=== PATIENT | male | born 1985 | race Caucasian/White ===

== ENCOUNTER 2017-10-08 21:31 | Emergency (ER) | payer MEDICAID ==
[~2017-10-08] VITALS: Ht 175.3 cm; Wt 83.7 kg
[2017-10-08 21:34] VITALS: BP 149/102
== END 2017-10-08 23:17 | disposition home or self-care (01) ==
LOC: ED 23:11
DX: S61.452A Open bite of left hand, initial encounter (principal); F10.220 Alcohol dependence with intoxication, uncomplicated; W55.03XA Scratched by cat, initial encounter; Y93.89 Activity, other specified; Y92.009 Unspecified place in unspecified non-institutional (private) residence as the place of occurrence of the external cause; Y99.8 Other external cause status
CPT/HCPCS: 99283

== ENCOUNTER 2018-01-10 20:22 | Emergency (ER) | payer MEDICAID ==
[~2018-01-10] VITALS: Ht 175.3 cm; Wt 87.0 kg
[2018-01-10 20:23] VITALS: BP 161/111
[2018-01-10] MEDS ORDERED: IBUPROFEN 200 MG TABLET PO ONE (21:30)
[2018-01-10] MEDS ORDERED: IBUPROFEN 200 MG TABLET ONE (21:39)
== END 2018-01-10 21:45 | disposition home or self-care (01) ==
LOC: ED 21:10
DX: G44.52 New daily persistent headache (NDPH) (principal); J32.1 Chronic frontal sinusitis; R45.851 Suicidal ideations
CPT/HCPCS: 99283

== ENCOUNTER 2019-02-24 10:03 | Emergency (ER) | payer MEDICAID ==
[~2019-02-24] VITALS: Ht 175.3 cm; Wt 86.0 kg
[2019-02-24 10:24] VITALS: BP 130/84
--- NOTE | 2019-02-24 10:41 | NUR ---
PATIENT BIB [facility] FOR [facility] WITH NO PLAN AND ETOH/HEROIN ABUSE. PATIENT REPORTS DRINKING 1/5 VODKA TODAY [employer]IN[employer] AND HEROIN YESTERDAY. MIKHAIL 0.316 UPON ARRIVAL TO [facility]. HX DIVERTICULITIS/SKIN GRAFT TO RT LOWER EXT. UA COLLECTED AND SENT TO LAB. TRAY ORDERED PER PATIENT REQUEST. ALL PERSONAL BELONGINGS PLACE IN LABELED BAG AND PUT IN LOCKED STORAGE. DOORS DOWN, SITTER AT DOORWAY WITH PATIENT IN SIGHT. PATIENT CALM/COOPERATIVE, LAYING IN GURNEY, NAD NOTED. ALL SAFETY MEASURES IN PLACE.
[2019-02-24 11:22] LABS: BASOPHILS # (AUTO) 0.04 x10^3/uL (0-0.1); BASOPHILS % (AUTO) 1 % (0-1); EOSINOPHILS # (AUTO) 0.13 x10^3/uL (0-0.4); EOSINOPHILS % (AUTO) 2 % (1-7); LYMPHOCYTES # (AUTO) 4.01 x10^3/uL (1-3.4); LYMPHOCYTES % (AUTO) 46 % (22-44); MD NO; MEAN CORPUSCULAR HEMOGLOBIN 31.9 pg (27.5-34.5); MEAN CORPUSCULAR HGB CONC 33.4 g/dL (33.2-36.2); MEAN CORPUSCULAR VOLUME 95.5 fL (81-97); MEAN PLATELET VOLUME 8.4 fL (7.4-10.4); MONOCYTES # (AUTO) 0.53 x10^3/uL (0.2-0.8); MONOCYTES % (AUTO) 6 % (2-9); NEUTROPHILS # (AUTO) 3.95 x10^3/uL (1.8-6.8); NEUTROPHILS % (AUTO) 46 % (42-75); PLATELET COUNT 296 x10^3/uL (130-400); RED BLOOD COUNT 5.17 x10^6/uL (4.38-5.82); RED CELL DISTRIBUTION WIDTH 14.4 % (9.4-14.8)
[2019-02-24 11:36] LABS: ALBUMIN 3.9 g/dL (3.4-5.0); ANION GAP 10 mmol/L (5-15); CHLORIDE 110 mmol/L (98-107); CREATININE 0.97 mg/dL (0.7-1.3); SALICYLATE LEVEL 3.4 mg/dL (2.8-20.0)
[2019-02-24 11:41] LABS: ACETAMINOPHEN < 2 mcg/mL (10-30)
[2019-02-24 11:49] LABS: AMPHETAMINE SCREEN, URINE Negative (Negative); BARBITURATE SCREEN, URINE Negative (Negative); BENZODIAZEPINE SCREEN, URINE Positive (Negative); CANNABINOID SCREEN, URINE Positive (Negative); COCAINE SCREEN, URINE Negative (Negative); METHADONE SCREEN, URINE Negative (Negative); OPIATE SCREEN, URINE Negative (Negative)
--- NOTE | 2019-02-24 12:38 | NUR ---
DIET TRAY PROVIDED, ALL SAFETY MEASURES IN PLACE, SITTER AT DOORWAY. PATIENT REMAINS CALM/COOPERATIVE. PATIENT SITTING IN GURNEY EATING LUNCH, NO ADDITIONAL NEEDS AT THIS TIME.
--- NOTE | 2019-02-24 13:52 | NUR ---
PATIENT SLEEPING IN GURNEY, VISIBLE CHEST RISE AND FALL. SITTER AT DOORWAY WITH PATIENT IN SIGHT, AWAITING PATIENT TO BE SOBER PRIOR TO TELEPSYCH. NO ADDITIONAL NEEDS AT THIS TIME.
--- NOTE | 2019-02-24 14:58 | NUR ---
PATIENT STANDING AT DOORWAY ASKING FOR WATER, CALM/COOPERATIVE. PATIENT PROVIDED WATER PER REQUEST. SITTER AT DOORWAY WITH PATIENT IN SIGHT.
--- NOTE | 2019-02-24 15:11 | NUR ---
BREATHALYZER-0.147. MD AWARE. PATIENT SITTING IN KAREN, MARKUS NOTED.
--- NOTE | 2019-02-24 17:22 | NUR ---
PATIENT SLEEPING IN GURNEY, VISIBLE CHEST RISE AND FALL. NAD NOTED.
--- NOTE | 2019-02-24 18:32 | NUR ---
PATIENT DEMANDING TO LEAVE, PATIENT REASSESSED MY ERP, DC ORDERS RECEIVED, PATIENT NOTIFIED TO WAIT IN ROOM WHILE JERRY ASHFORD DC PAPER. Addendum: 02/24/19 at 2020 by DESON PATIENT NOT ON LEGAL.
--- NOTE | 2019-02-24 18:39 | NUR ---
Patient/Caregiver given discharge instructions and they have confirmed that they understand the instructions. Patient ambulatory with steady gait to DC desk.
== END 2019-02-24 18:49 | disposition home or self-care (01) ==
LOC: ED 11:21
DX: F32.9 Major depressive disorder, single episode, unspecified (principal); F10.129 Alcohol abuse with intoxication, unspecified
CPT/HCPCS: 36415; 80048; 80307; 82040; 85025; 99284

== ENCOUNTER 2019-04-20 16:00 | Emergency (ER) | payer MEDICAID ==
[~2019-04-20] VITALS: Ht 175.3 cm; Wt 83.7 kg
[2019-04-20 16:42] VITALS: BP 128/90
--- NOTE | 2019-04-20 16:55 | NUR ---
URINE SPECIMEN CUP GIVEN TO PT.
[2019-04-20 17:12] LABS: MICROSCOPIC NOT IND
[2019-04-20] MEDS ORDERED: FLUO20CA8 PO (18:35)
[2019-04-20] MEDS ORDERED: TRAZ-96 PO (18:35)
--- NOTE | 2019-04-20 18:40 | NUR ---
VOMITING BLOOD X "A COUPLE OF WEEKS", BLOOD IN URINE, BLOOD IN BM, ABD PAIN. HX: ALCOHOL ABUSE. WAS SCHEDULED TO CHECK INTO REHAB TODAY Report he drinks a gallon of vodka/day. Last drink this am Reports he has gone without drinking w/out seizure
--- NOTE | 2019-04-20 19:05 | NUR ---
report to jonatan palma
[2019-04-20 19:08] LABS: MEAN CORPUSCULAR HEMOGLOBIN 31.6 pg (27.5-34.5); MEAN CORPUSCULAR HGB CONC 33.1 g/dL (33.2-36.2); MEAN CORPUSCULAR VOLUME 95.6 fL (81-97); MEAN PLATELET VOLUME 7.9 fL (7.4-10.4); PLATELET COUNT 274 x10^3/uL (130-400); RED BLOOD COUNT 5.48 x10^6/uL (4.38-5.82); RED CELL DISTRIBUTION WIDTH 15.8 % (9.4-14.8)
--- NOTE | 2019-04-20 19:12 | NUR ---
report to jonatan palma
[2019-04-20 19:16] LABS: ALBUMIN 4.5 g/dL (3.4-5.0); ANION GAP 12 mmol/L (5-15); CALCIUM 8.6 mg/dL (8.5-10.1); CHLORIDE 111 mmol/L (98-107)
[2019-04-20 19:18] LABS: INTERNATIONAL NORMALIZED RATIO 1.04 (0.93-1.1); PROTHROMBIN TIME 10.9 Seconds (9.6-11.5)
[2019-04-20 19:19] LABS: ALANINE AMINOTRANSFERASE 34 U/L (12-78); ALKALINE PHOSPHATASE 78 U/L (45-117); BILIRUBIN,TOTAL 0.6 mg/dL (0.2-1.0); CREATININE 1.04 mg/dL (0.7-1.3); TOTAL PROTEIN 8.1 g/dL (6.4-8.2)
--- NOTE | 2019-04-20 19:23 | NUR ---
REPORT OF PT FROM JERRY MCCOY AND ASSUMING CARE OF PT AT THIS TIME. PT IN [facility] WITH CALL LIGHT WITHIN REACH.
[2019-04-20] MEDS ORDERED: FAMOTIDINE 20 MG TABLET ONE (19:24)
[2019-04-20] MEDS ORDERED: ONDANSETRON ODT 4 MG ONE (19:24)
[2019-04-20] MEDS ORDERED: MAALOX/HYOSCYAMINE/LIDOCAINE 45 ML BTL ONE (19:24)
[2019-04-20] MEDS ORDERED: FAMOTIDINE 20 MG TABLET PO ONE (19:30)
[2019-04-20] MEDS ORDERED: ONDANSETRON ODT 8 MG PO ONE (19:30)
[2019-04-20] MEDS ORDERED: MAALOX/HYOSCYAMINE/LIDOCAINE 45 ML BTL PO ONE (19:30)
--- NOTE | 2019-04-20 19:34 | NUR ---
PT MEDICATED PER MAR AT THIS TIME.
[2019-04-20 19:40] LABS: BASOPHILS # (AUTO) 0.03 x10^3/uL (0-0.1); BASOPHILS % (AUTO) 1 % (0-1); EOSINOPHILS # (AUTO) 0.08 x10^3/uL (0-0.4); EOSINOPHILS % (AUTO) 1 % (1-7); LYMPHOCYTES # (AUTO) 3.78 x10^3/uL (1-3.4); LYMPHOCYTES % (AUTO) 56 % (22-44); MD SCAN; MONOCYTES % (AUTO) 6 % (2-9); NEUTROPHILS % (AUTO) 36 % (42-75)
--- NOTE | 2019-04-20 20:06 | NUR ---
CARE ASSUMED FOR DC. PT DC'D HOME WITH RX X 3 AND UNDERSTANDING OF INSTRUCTIONS. REFERRAL PROVIDED FOR FOLLOW UP. PT AND FAMILY MEMBER ESCORTED TO DC DESK.
== END 2019-04-20 20:09 | disposition home or self-care (01) ==
LOC: ED 19:28
DX: K29.20 Alcoholic gastritis without bleeding (principal); F10.10 Alcohol abuse, uncomplicated; Z88.5 Allergy status to narcotic agent
CPT/HCPCS: 36415; 80053; 81003; 85025; 85610; 99284; Q0162

== ENCOUNTER 2019-08-20 15:40 | Inpatient (IN) | payer MEDICAID ==
[~2019-08-20] VITALS: Ht 175.3 cm; Wt 62.2 kg
[~2019-08-20 15:40] MED LIST: FLUO20CA8 PO; TRAZ-96 PO
[2019-08-20] MEDS ORDERED: SERT100T PO (16:15)
[2019-08-20] MEDS ORDERED: SODIUM CHLORIDE 0.9% 1,000 ML IV ONE ×2 (16:15→19:11)
[2019-08-20] MEDS ORDERED: NALT50TA PO (16:15)
[2019-08-20] MEDS ORDERED: HYDR50TA13 PO (16:15)
--- NOTE | 2019-08-20 16:23 | NUR ---
Patient brought in by EMS for left lower quadrant abdominal pain and dark red bloody stool. Patient reports he drank two fifths of hard alcohol today and used heroin and meth. Patient additionally requests assistance with detox. No interventions by EMS. Patient arrives alert and appropriate.
[2019-08-20] MEDS ORDERED: ONDANSETRON 2MG/ML, 2ML ONE (16:25)
[2019-08-20] MEDS ORDERED: PANTOPRAZOLE 40 MG IV ONE (16:25)
[2019-08-20] MEDS ORDERED: PANTOPRAZOLE 40 MG IV IVPush ONE (16:30)
[2019-08-20] MEDS ORDERED: SODIUM CHLORIDE 0.9% 1,000ML IVBOLUS ONE (16:30)
[2019-08-20] MEDS ORDERED: SODIUM CHLORIDE FLUSH 10ML SYR IVF ONE (16:30)
[2019-08-20] MEDS ORDERED: ONDANSETRON 2MG/ML, 2ML IVPush ONE (16:30)
--- NOTE | 2019-08-20 16:37 | NUR ---
Plan of care discussed with patient, questions answered.
[2019-08-20 16:43] LABS: MEAN CORPUSCULAR HEMOGLOBIN 32.5 pg (27.5-34.5); MEAN CORPUSCULAR HGB CONC 33.5 g/dL (33.2-36.2); MEAN CORPUSCULAR VOLUME 96.9 fL (81-97); MEAN PLATELET VOLUME 8.6 fL (7.4-10.4); PLATELET COUNT 222 x10^3/uL (130-400); RED BLOOD COUNT 5.04 x10^6/uL (4.38-5.82); RED CELL DISTRIBUTION WIDTH 16.9 % (9.4-14.8)
[2019-08-20 16:49] LABS: INTERNATIONAL NORMALIZED RATIO 0.95 (0.93-1.1)
[2019-08-20 17:13] LABS: MD YES
[2019-08-20 17:19] LABS: ALANINE AMINOTRANSFERASE 140 U/L (12-78); ANION GAP 11 mmol/L (5-15); CALCIUM 8.5 mg/dL (8.5-10.1); CHLORIDE 113 mmol/L (98-107); CREATININE 0.84 mg/dL (0.7-1.3)
[2019-08-20 17:22] LABS: ALKALINE PHOSPHATASE 57 U/L (45-117); BILIRUBIN,TOTAL 0.3 mg/dL (0.2-1.0); TOTAL PROTEIN 7.9 g/dL (6.4-8.2)
[2019-08-20 17:37] LABS: BAND#(MANUAL) 0.07 x10^3/uL; BANDS%(MANUAL) 1 % (0-7); EOS#(MANUAL) 0.36 x10^3/uL (0.0-0.4); EOS% (MANUAL) 5 % (1-7); LYMPH#(MANUAL) 4.62 x10^3/uL (1-3.4); LYMPHS% (MANUAL) 65 % (22-44); MONOS#(MANUAL) 0.21 x10^3/uL (0.3-2.7); MONOS% (MANUAL) 3 % (2-9); SEGS% (MANUAL) 26 % (42-75)
[2019-08-20 17:38] LABS: <PLATELET ESTIMATE> ADEQUATE; <PLT MORPHOLOGY> NORMAL PLT MORPH; <RBC MORPHOLOGY> NORMAL
[2019-08-20 17:39] LABS: SEG#(MANUAL) 1.85 x10^3/uL (1.8-6.8)
--- NOTE | 2019-08-20 17:41 | NUR ---
Patient resting in gurney with eyes closed. Waiting for lab results.
--- NOTE | 2019-08-20 19:04 | NUR ---
Dr. Wagner notified of patient's suicide risk score. Bedside report to JERRY Germain
[2019-08-20] MEDS ORDERED: SODIUM CHLORIDE FLUSH 10ML SYR IVF PRN (19:30)
[2019-08-20 20:13] VITALS: BP 120/78
[2019-08-20] MEDS ORDERED: LORazepam 2 MG/ML, 1ML IV PRN ×3 (21:00)
[2019-08-20] MEDS ORDERED: DIAZEPAM 5 MG/ML, 2ML IV PRN (21:00)
[2019-08-20] MEDS ORDERED: ONDANSETRON 2MG/ML, 2ML IV PRN (21:00)
[2019-08-20] MEDS ORDERED: ALUMINUM/MAG/SIMETHICONE 30 ML UDC PO PRN (21:00)
[2019-08-20 21:14] LABS: ANION GAP 6 mmol/L (5-15); CALCIUM 7.7 mg/dL (8.5-10.1); CHLORIDE 114 mmol/L (98-107); CREATININE 0.73 mg/dL (0.7-1.3)
[2019-08-20 21:50] LABS: MICROSCOPIC NOT IND
[2019-08-20 21:54] LABS: CULTURE INDICATED? NO
[2019-08-20] MEDS: MAGNESIUM SULFATE IV SCH (22:21)
[2019-08-20] MEDS: FOLIC ACID IV SCH (22:21)
[2019-08-20] MEDS: NACL IV SCH (22:21)
[2019-08-20] MEDS: MVI ADULT IV SCH (22:21)
[2019-08-20] MEDS: D5 IV SCH (22:21)
[2019-08-20] MEDS: BACLOFEN 10 MG TABLET PO SCH (22:22)
[2019-08-21 00:54] VITALS: BP 126/81
[2019-08-21] MEDS: LORazepam 2 MG/ML, 1ML IV PRN ×5 (01:30→17:16)
[2019-08-21 05:23] LABS: BASOPHILS # (AUTO) 0.03 x10^3/uL (0-0.1); BASOPHILS % (AUTO) 1 % (0-1); EOSINOPHILS # (AUTO) 0.18 x10^3/uL (0-0.4); EOSINOPHILS % (AUTO) 3 % (1-7); LYMPHOCYTES # (AUTO) 2.44 x10^3/uL (1-3.4); LYMPHOCYTES % (AUTO) 46 % (22-44); MD NO; MEAN CORPUSCULAR HEMOGLOBIN 31.8 pg (27.5-34.5); MEAN CORPUSCULAR HGB CONC 32.9 g/dL (33.2-36.2); MEAN CORPUSCULAR VOLUME 96.8 fL (81-97); MEAN PLATELET VOLUME 8.5 fL (7.4-10.4); MONOCYTES # (AUTO) 0.34 x10^3/uL (0.2-0.8); MONOCYTES % (AUTO) 6 % (2-9); NEUTROPHILS # (AUTO) 2.36 x10^3/uL (1.8-6.8); NEUTROPHILS % (AUTO) 44 % (42-75); PLATELET COUNT 173 x10^3/uL (130-400); RED BLOOD COUNT 4.71 x10^6/uL (4.38-5.82); RED CELL DISTRIBUTION WIDTH 16.9 % (9.4-14.8)
[2019-08-21 06:53] VITALS: BP 105/100
[2019-08-21] MEDS: PANTOPRAZOLE 40 MG IV IVPush SCH ×2 (08:43→20:25)
[2019-08-21] MEDS: BACLOFEN 10 MG TABLET PO SCH ×2 (08:43→20:25)
[2019-08-21] MEDS: D5%-0.45% NACL 1,000 ML IV SCH ×2 (09:15→16:57)
[2019-08-21] MEDS: THIAMINE 100 MG in SODIUM CHLORIDE 0.9% 50 ML IV SCH (09:29)
[2019-08-21] MEDS: CHLORDIAZEPOXIDE 25 MG CAPSULE PO SCH ×3 (10:33→20:25)
[2019-08-21 12:16] LABS: ALBUMIN 3.6 g/dL (3.4-5.0); BILIRUBIN, DIRECT 0.1 mg/dL (0.1-0.2); BILIRUBIN,INDIRECT 0.3 mg/dL (0.0-2.0); BILIRUBIN,TOTAL 0.4 mg/dL (0.2-1.0); TOTAL PROTEIN 6.9 g/dL (6.4-8.2)
[2019-08-21 12:50] VITALS: BP 136/82
[2019-08-21 19:00] VITALS: BP 132/78
[2019-08-21] MEDS: MAGNESIUM SULFATE IV SCH (22:18)
[2019-08-21] MEDS: FOLIC ACID IV SCH (22:18)
[2019-08-21] MEDS: MVI ADULT IV SCH (22:18)
[2019-08-21] MEDS: D5 IV SCH (22:18)
[2019-08-21] MEDS: NACL IV SCH (22:18)
[2019-08-22 01:15] VITALS: BP 126/72
[2019-08-22] MEDS: LORazepam 2 MG/ML, 1ML IV PRN ×2 (03:31→05:25)
[2019-08-22 05:10] LABS: BASOPHILS # (AUTO) 0.03 x10^3/uL (0-0.1); BASOPHILS % (AUTO) 1 % (0-1); EOSINOPHILS # (AUTO) 0.18 x10^3/uL (0-0.4); EOSINOPHILS % (AUTO) 4 % (1-7); LYMPHOCYTES # (AUTO) 1.63 x10^3/uL (1-3.4); LYMPHOCYTES % (AUTO) 33 % (22-44); MD NO; MEAN CORPUSCULAR HEMOGLOBIN 31.8 pg (27.5-34.5); MEAN CORPUSCULAR HGB CONC 32.9 g/dL (33.2-36.2); MEAN CORPUSCULAR VOLUME 96.8 fL (81-97); MONOCYTES # (AUTO) 0.43 x10^3/uL (0.2-0.8); MONOCYTES % (AUTO) 9 % (2-9); NEUTROPHILS # (AUTO) 2.72 x10^3/uL (1.8-6.8); NEUTROPHILS % (AUTO) 55 % (42-75); PLATELET COUNT 146 x10^3/uL (130-400); RED BLOOD COUNT 4.68 x10^6/uL (4.38-5.82); RED CELL DISTRIBUTION WIDTH 15.8 % (9.4-14.8)
[2019-08-22] MEDS: CHLORDIAZEPOXIDE 25 MG CAPSULE PO SCH (05:18)
[2019-08-22 05:25] LABS: ALANINE AMINOTRANSFERASE 103 U/L (12-78); ALBUMIN 3.7 g/dL (3.4-5.0); ANION GAP 6 mmol/L (5-15); CALCIUM 8.2 mg/dL (8.5-10.1); CHLORIDE 109 mmol/L (98-107); CREATININE 0.82 mg/dL (0.7-1.3)
[2019-08-22 05:27] LABS: ALKALINE PHOSPHATASE 49 U/L (45-117); BILIRUBIN,TOTAL 0.6 mg/dL (0.2-1.0); TOTAL PROTEIN 6.9 g/dL (6.4-8.2)
[2019-08-22 07:01] VITALS: BP 142/97
[2019-08-22] MEDS: PANTOPRAZOLE 40 MG IV IVPush SCH ×2 (08:39→19:48)
[2019-08-22] MEDS: BACLOFEN 10 MG TABLET PO SCH ×2 (08:44→19:48)
[2019-08-22] MEDS: THIAMINE 100 MG in SODIUM CHLORIDE 0.9% 50 ML IV SCH (08:46)
[2019-08-22] MEDS: D5%-0.45% NACL 1,000 ML IV SCH (08:48)
[2019-08-22] MEDS ORDERED: LORazepam 1MG TABLET PO PRN ×2 (09:30)
[2019-08-22] MEDS ORDERED: LORazepam 0.5MG TABLET PO PRN (09:30)
[2019-08-22] MEDS: LORazepam 1MG TABLET PO PRN ×4 (09:52→19:48)
[2019-08-22] MEDS ORDERED: CHLORDIAZEPOXIDE 10 MG CAPSULE PO SCH (11:00)
[2019-08-22 13:48] VITALS: BP 138/101
[2019-08-22] MEDS: CHLORDIAZEPOXIDE 10 MG CAPSULE PO SCH ×2 (17:18→19:48)
[2019-08-22 19:01] VITALS: BP 118/78
[2019-08-22] MEDS: MVI ADULT IV SCH (21:51)
[2019-08-22] MEDS: FOLIC ACID IV SCH (21:51)
[2019-08-22] MEDS: NACL IV SCH (21:51)
[2019-08-22] MEDS: D5 IV SCH (21:51)
[2019-08-22] MEDS: MAGNESIUM SULFATE IV SCH (21:51)
[2019-08-23 00:39] VITALS: BP 124/83
[2019-08-23] MEDS: LORazepam 1MG TABLET PO PRN (01:46)
[2019-08-23] MEDS: CHLORDIAZEPOXIDE 10 MG CAPSULE PO SCH (05:04)
[2019-08-23 08:31] VITALS: BP 127/83
[2019-08-23] MEDS: BACLOFEN 10 MG TABLET PO SCH (09:21)
[2019-08-23] MEDS: PANTOPRAZOLE 40 MG IV IVPush SCH (09:21)
[2019-08-23] MEDS: THIAMINE 100 MG in SODIUM CHLORIDE 0.9% 50 ML IV SCH (09:21)
[2019-08-23] MEDS ORDERED: FOLI-17 PO (13:25)
[2019-08-23] MEDS ORDERED: THIA100T67 PO (13:25)
== END 2019-08-23 14:05 | disposition home or self-care (01) | DRG 432 ==
LOC: ED 16:23 → 4WST 19:11 → DCLOUNGE 08-23 14:00
PROVIDERS: ADMIT Internal Medicine; ATTEND Internal Medicine
DX: K70.10 Alcoholic hepatitis without ascites (principal); K29.21 Alcoholic gastritis with bleeding; F32.2 Major depressive disorder, single episode, severe without psychotic features; F10.239 Alcohol dependence with withdrawal, unspecified; F10.229 Alcohol dependence with intoxication, unspecified; F11.90 Opioid use, unspecified, uncomplicated; F15.90 Other stimulant use, unspecified, uncomplicated; F17.210 Nicotine dependence, cigarettes, uncomplicated; Y90.8 Blood alcohol level of 240 mg/100 ml or more; Z82.3 Family history of stroke
CPT/HCPCS: 36415; 80048; 80053; 80074; 80076; 80307; 81003; 83605; 83690; 83735; 85014; 85018; 85025; 85610; 85730; 86850; 86900; 87389; 96361; 96374; 96375; 99285; G0378; J2405; J3411; J3475; C9113; J2060; J7030